=== PATIENT | female | born 1985 | race Caucasian/White ===

== ENCOUNTER 2019-11-07 12:25 | Day surgery (SDC) | payer OTHER, SELFPAY ==
[2019-11-07] VITALS (10 sets, daily range): BP systolic 85–106; BP diastolic 45–59; PULSE 63–85; RESP 14–21; TEMP 36.2–36.5; O2SAT 92–96
[2019-11-07] MEDS: Lactated Ringers 1,000 ML 80 ML IV ×2 (12:58→15:24)
--- NOTE | 2019-11-07 13:04 | W.PM.DSUDISC ---
Discharge Plan Disposition Patient Disposition: HOME Condition: Good Discharge Details Reason For Visit: Acute cholecystitis Attending Provider: Patricia Ford Primary Care Provider: Juan Ramon Rothman Home Meds and New Rx's Prescriptions: New hydrocodone-acetaminophen 5-325 mg Tablet 1 tab PO Q4H PRN (Reason: Pain) Qty: 12 RF: 0 Continued diphenhydramine HCl [Benadryl] 25 mg capsule 25 mg PO Q6H PRNRF: 0 Vicks DayQuil Cold-Flu Relief 5-10-325 mg/15 mL liquid PO RF: 0 estradiol 1 mg tablet 1 mg PO DAILY RF: 0 Discharge Instructions Additional Instructions: The top bandage can be removed tomorrow. The steri strips will usually stick for about a week. When the edges start to curl up, they can be removed. It is okay to shower tomorrow, the water can run over the steri strips Do not swim or soak in a tub for two weeks Call for any concerns including fever, increased pain, vomiting, incision redness or drainage. Do not lift more than 15 pounds for two weeks. Walking and stairs are fine. Do not drive if on narcotic pain meds or if limited by pain. May use Tylenol alternating with ibuprofen for pain control. Ice is also an option. The maximum dose for Tylenol is 4000 mg/day. May use ibuprofen 800 mg every 8 hours as needed. If concerned about constipation, you may use a stool softener or milk of magnesia. Referrals: Patricia Ford MD [ [facility] STAFF PHYSICIAN] - (Return for a postop check in 10-14 days) Activity:: Do not lift more than 15 pounds for two weeks Remove Dressings/Wound Care:: 24 hours Shower/Bathe:: 24 hours Diet:: Low fat for two weeks Discharge Orders Discharge Orders: Discharge Order (Routine); Ordered 11/07/19 Ordered By: Patricia Ford DS: Diagnosis Discharge Diagnosis (1) Acute cholecystitis: Status: Acute
[2019-11-07] MEDS: ceFAZolin 2 GM/50 ML BAG IVPB (13:36)
--- NOTE | 2019-11-07 14:30 | GB_PTH ---
PATIENT: Xiomara Kelley LOC: [facility] U#:[id number] AGE/SX: 34/F ROOM: RE11/07/[address]: Patricia Ford MD : 1985 BED: DIS: 11/07/2019 SPEC #: [id number] RECD: 11/07/19 17:24 STATUS: VAMSHI REQ #: [id number] GORDON: 11/07/19 14:[address]: Patricia Ford DEPT: Surgical Specimen RECD BY: Rita Bryan ENTERED: 11/07/19 17:24 SP TYPE: GB OTHR DR: Juan Ramon Rothman Tissues: 1 - GALLBLADDER Procedures: GROSS AND MICRO LEVEL 3 Comments: [id number]
[2019-11-07] MEDS: fentaNYL 100 MCG/2 ML VIAL IVP (15:43)
--- NOTE | 2019-11-08 10:18 | ROE_ITS ---
DATE OF PROCEDURE: November 07, 2019 PREOPERATIVE DIAGNOSIS: Biliary colic. POSTOPERATIVE DIAGNOSIS: Acute cholecystitis. PROCEDURE: Laparoscopic cholecystectomy. SURGEON: Patricia Ford M.D. FAST FOOD SUPERVISOR: Guille Roger ANESTHESIA: General. INDICATIONS: This is a 34-year-old woman who presents with two weeks of right upper quadrant pain th at radiates to her back. This has been keeping her up most nights. She had a gallbladder ultrasound that showed that the gallbladder was full of sludge. Her LFT's have been normal. PROCEDURE: She was placed supine on the operating table and under general anesthetic was prepped and draped sterilely. A 5 mm incision was made to the left of the umbilicus and the abdomen entered und er direct visualization with the 5 mm scope. A C02 pneumoperitoneum was begun and she was placed in reverse Trendelenburg position. The epigastric and two lateral ports were placed, after injecting lo austin anesthetic, under direct visualization. The gallbladder fundus was grasped and pulled up over th e liver. The infundibulum was retracted laterally. Hook cautery was used to dissect the peritoneum overlying the triangle of Calot. It was obvious there was some edema of the tissues, consistent with mild acute cholecystitis. The node of Calot was identified. The cystic artery was visualized going directly onto the gallbladder. This was clipped twice proximally and once distally and divided. Th e cystic duct was visualized going directly onto the gallbladder. This was non-dilated. It was palp ated and no stones were identified within it. I did obtain a critical view. The cystic duct was cli pped twice distally and once proximally and divided. There was an additional arterial branch posteri gretel that was clipped. The gallbladder was then dissected off the liver bed with hook cautery and re moved through the epigastric incision in an EndoCatch bag. Inspection of the operative site revealed no bleeding or bile leak. The ports were removed with no evidence of bleeding and the C02 released. The skin at all port sites was closed with a #4-0 Monocryl subcuticular stitch. She tolerated the procedure well and was stable to recovery. cc: Juan Ramon Rothman D.O.
== END 2019-11-07 17:03 | disposition home or self-care (01) ==
PROVIDERS: PCP Family Medicine; Visit Provider Surgery
PROC: 0FT44ZZ Resection of Gallbladder, Percutaneous Endoscopic Approach (ICD-10-PCS; CPT 47562; principal; 2019-11-07 13:00)
DX: R10.84 Generalized abdominal pain (principal); K81.1 Chronic cholecystitis; K82.8 Other specified diseases of gallbladder
CPT/HCPCS: 47562; 88304; J0690; J1100; J1885; J2405; J3010

== ENCOUNTER 2020-07-28 17:50 | Emergency (ER) | payer OTHER, SELFPAY ==
[2020-07-28 17:53] VITALS: BP 150/90; PULSE 82; RESP 16; TEMP 36.6; O2SAT 98
--- NOTE | 2020-07-28 18:04 | W.ED.GENAD ---
Discharge Plan Disposition Patient Disposition: HOME Condition: Stable Discharge Details Chief Complaint: AnimalBite Clinical Impression: Dog bite of right forearm Primary Care Provider: Juan Ramon Rothman ED Provider: Jose Francisco Yoder Home Meds and New Rx's Prescriptions: New amoxicillin-pot clavulanate [Augmentin] 875-125 mg tablet 1 tab PO BID Qty: 14 RF: 0 Continued diphenhydramine HCl [Benadryl] 25 mg capsule 25 mg PO Q6H PRNRF: 0 estradiol 1 mg tablet 1 mg PO DAILY RF: 0 Discharge Instructions Instructions: Animal Bite (ED) Additional Instructions: if the wounds have spreading redness or yellow/white discharge from the wound return to the emergency department contact occupational health tomorrow to make sure you have had a tetanus vaccine or booster within 5 years and if not have one done with them or return to the emergency department Medical Decision Making 35 yo female comes in after her brother's 2 year old great katelyn bit her right arm when she had it outstretched. Has 1 2cm abrasion and 2 puncture wounds about 0.5mm in diameter on lateral proximal forearm, no bony tenderness, full rom of the elbow wrist and hand with normal pulses. Pt states utd on tetanus when she went to [facility] a year ago, we do not have access to this so she will contact them tomorrow and make sure she's had it within 5 years and if not either get a booster from them or return here. She states dog is utd on rabies. Do not feel any imaging indicated, will start on augmentin and d/c with return precautions Differential Diagnosis Differential Diagnosis: dog bite puncture wounds HPI General Mode of arrival: ambulatory. Date/Time Provider Initiated Documentation: 07/28/20 17:59. Limitations to Documentation: no limitations. Information obtained by: patient. History of Present Illness 35 year old F presents to the emergency department with the chief complaint of dog bite, described as moderate, and it has been constant. No relieving factors improve symptom(s), No exacerbating factors reported . Related Data Home Medications Medication Instructions Recorded Confirmed diphenhydramine HCl 25 mg capsule 25 mg PO Q6H PRN 11/07/19 07/28/20 estradiol 1 mg tablet 1 mg PO DAILY 11/07/19 07/28/20 amoxicillin-pot clavulanate 1 tab PO BID #14 tab 07/28/20 [Augmentin] Previous Rx's Medication Instructions Recorded amoxicillin-pot clavulanate 1 tab PO BID #14 tab 07/28/20 [Augmentin] Allergies Allergy/AdvReac Type Severity Reaction Status Date / Time No Known Allergies Allergy Verified 11/07/19 12:43 General Stated Complaint: AnimalBite RACHEL: 4 Review of Systems All systems reviewed & are unremarkable except as noted in HPI and below Constitutional Constitutional: Denies chills, Denies fever(s) and Denies weakness Cardiovascular Cardiovascular: Denies chest pain and Denies dyspnea Respiratory Respiratory: Denies cough and Denies dyspnea Gastrointestinal Gastrointestinal: Denies abdominal pain, Denies nausea and Denies vomiting Musculoskeletal Musculoskeletal: Denies joint swelling Integumentary/Breasts Skin/Breast: Denies rash Neurologic Neurologic: Denies weakness Psychiatric Psychiatric: Denies depression [facility] Medical History (Updated 07/28/20 @ 18:08 by Jose Francisco Yoder MD) Abdominal pain (Acute) Colitis (Acute) Constipation (Acute) Diarrhea (Acute) Endometriosis (Chronic) Family history of Crohn's disease (Acute) Surgical History (Updated 11/07/19 @ 14:44 by Patricia Ford MD) H/O laparoscopy (Chronic) H/O: hysterectomy (Chronic) S/P laparoscopic cholecystectomy (Acute) [place] teeth removed (Acute) Social History (Updated 11/07/19 @ 12:25 by Patricia Ford MD) Smoking/Tobacco Use Status: Never Alcohol Intake: current Alcohol Intake frequency: a few times a week Substance use type: does not use Do you feel safe at home: Yes Do you feel safe in your relationship?: Yes Exam Const General: no acute distress Orientation: alert HENAL Head: normal to inspection Ears: external ears normal General nose exam: external nose normal Mouth: moist mucous membranes Eyes General: appearance normal, both eyes and all related structures Neck Neck: normal visual inspection Resp Effort & Inspection: normal respiratory effort and able to speak in complete sentences Cardio Rate: regular rate Skin General skin exam: no rashes or lesions noted Neuro General: patient alert and patient oriented x3 Extrem General: full ROM and capillary refill normal Psych Mental Status: mental status grossly normal Course Vital Signs Vital signs: Vital Signs Temperature 36.6 C 07/28/20 17:53 Pulse 82 07/28/20 17:53 Respiratory Rate 16 07/28/20 17:53 Blood Pressure 150/90 H 07/28/20 17:53 Pulse Oximetry 98 07/28/20 17:53 Temperature 36.6 C 07/28/20 17:53 Temperature Source Skin 07/28/20 17:53 Pulse 82 07/28/20 17:53 Respiratory Rate 16 07/28/20 17:53 Respiratory Effort Non-Labored 07/28/20 17:57 Blood Pressure 150/90 H 07/28/20 17:53 Blood Pressure Position Sitting 07/28/20 17:53 Pulse Oximetry 98 07/28/20 17:53 Pain Level 5 07/28/20 17:53
[2020-07-28] MEDS: Amoxicillin 875/Clav. 125 TAB PO (18:12)
--- NOTE | 2020-07-28 18:22 | NUR.NOTE ---
Animal bite form faxed to [facility] Health Officer Guevara Najera, .Nursing Note:
== END 2020-07-28 18:24 | disposition home or self-care (01) ==
LOC: ER 18:17
PROVIDERS: Emergency Provider Emergency Medicine; PCP Family Medicine
DX: S51.851A Open bite of right forearm, initial encounter (principal); W54.0XXA Bitten by dog, initial encounter
CPT/HCPCS: 99283

== ENCOUNTER 2020-10-02 01:11 | Outpatient (CLI) | payer OTHER, SELFPAY ==
[2020-10-02 07:43] LABS: Hemoglobin A1C 4.8 % (<5.7)
[2020-10-02 09:34] LABS: Calculated LDL 155 mg/dL (<100); Cholesterol 261 mg/dL (<200); HDL Cholesterol 74 mg/dL (40-60); Triglyceride 162 mg/dL (<150)
[2020-10-06 10:31] LABS: HIV-1/2 Ag & Ab Screen Negative (Negative)
[2020-10-20 15:10] LABS: Hepatitis C Ab w Rflx HCV PCR Negative (Negative)
== END 2020-10-02 01:31 ==
PROVIDERS: PCP Nurse Practitioner Family; Visit Provider Nurse Practitioner Family
DX: Z11.4 Encounter for screening for human immunodeficiency virus [HIV] (principal); Z13.220 Encounter for screening for lipoid disorders; Z83.3 Family history of diabetes mellitus
CPT/HCPCS: 36415; 80061; 86803; 87389; 83036

== ENCOUNTER 2023-02-01 16:12 | Outpatient (CLI) | payer OTHER, SELFPAY ==
--- NOTE | 2023-02-01 14:30 | DI.RAD_ITS ---
Exam(s) XR CHEST 2V PA LATERAL EXAM: XR CHEST 2V PA LATERAL CLINICAL HISTORY: fever, recent cold ?PNA, R50.9 TECHNIQUE: 2D digital imaging was performed of the chest. Two images were obtained. PA and lateral views were obtained. COMPARISON: No exams were available for comparison FINDINGS: MEDIASTINUM: Normal. HEART: Normal. PULMONARY VASCULATURE: Normal. LUNGS: Clear. PLEURAL SPACE: No pleural effusion or pneumothorax. BONE:Within normal limits for the patient's age. OTHER FINDINGS:There are surgical clips seen in the right upper quadrant of the abdomen. The patient is status post cholecystectomy. IMPRESSION: No acute pulmonary findings. DATA REPOSITORY: RADIATION DOSE DELIVERED:
== END 2023-02-01 16:32 ==
LOC: DI 16:13
PROVIDERS: PCP Nurse Practitioner Family; Visit Provider Nurse Practitioner Family
DX: R50.9 Fever, unspecified (principal); R05.8 Other specified cough
CPT/HCPCS: 71046

== ENCOUNTER 2023-03-17 01:34 | Outpatient (CLI) | payer OTHER, SELFPAY ==
[2023-03-17 08:58] LABS: Abs Immature Grans 0.01 10^3/uL (0.0-0.06); Absolute Basophil Count 0.05 10^3/uL (0.0-0.2); Absolute Eosinophil Count 0.08 10^3/uL (0.0-0.7); Absolute Lymphocyte Count 2.19 10^3/uL (1.2-3.4); Absolute Monocyte Count 0.53 10^3/uL (0.1-0.8); Absolute Neutrophil Count 2.29 10^3/uL (1.2-6.7); Eosinophils % 1.6; HCT 40.1 % (36.0-46.0); HGB 13.6 g/dL (11.2-15.7); Immature Grans % 0.2; Lymphocytes % 42.5; MCHC 33.9 % (32.0-36.0); MCV 97 fL (80-95); MPV 12.6 fL (8.0-11.0); Monocytes % 10.3; Neutrophils % 44.4; Platelet Count 182 10^3/uL (130-400); RBC 4.12 10^6/uL (3.93-5.22); RDW 12.5 % (11.7-14.6); RDW-SD 44.7 fL; WBC 5.15 10^3/uL (4.4-10.8)
[2023-03-17 10:11] LABS: ALT 26 U/L (14-59); AST 15 U/L (15-37); Albumin 3.6 g/dL (3.4-5.0); Alkaline Phosphatase 65 U/L (46-116); Anion Gap 8.3 mmol/L (3-11); BUN 20 mg/dL (7-18); Bilirubin, Total 0.4 mg/dL (0.2-1.0); CO2 26.7 mmol/L (21.0-32.0); CREATININE 0.8 mg/dL (0.55-1.02); Calcium 8.8 mg/dL (8.5-10.1); Calculated LDL 155 mg/dL (<100); Chloride 105 mmol/L (98-107); Cholesterol 258 mg/dL (<200); Estimated GFR 96.66 (mL/min/1.73m2); Glucose 110 mg/dL (74-106); HDL Cholesterol 87 mg/dL (40-60); Potassium 4.3 mmol/L (3.5-5.1); Sodium 140 mmol/L (136-145); TSH (W/Ref FT4) 2.16 uIU/mL (0.36-3.74); Total Protein 7.5 g/dL (6.4-8.2); Triglyceride 82 mg/dL (<150)
== END 2023-03-17 01:35 | disposition home or self-care (01) ==
LOC: LBO 01:35
PROVIDERS: PCP Nurse Practitioner Family; Referring Provider Nurse Practitioner Family; Visit Provider Nurse Practitioner Family
DX: R23.2 Flushing (principal); Z13.1 Encounter for screening for diabetes mellitus; E78.5 Hyperlipidemia, unspecified
CPT/HCPCS: 36415; 80053; 80061; 84443; 85025

== ENCOUNTER 2023-03-23 13:02 | Outpatient (CLI) | payer OTHER, SELFPAY ==
[2023-03-23 12:57] LABS: Folate 18.7 ng/mL (8.6-20.0); Vitamin B12 443 pg/mL (193-986)
== END 2023-03-23 13:03 | disposition home or self-care (01) ==
LOC: LBO 13:02
PROVIDERS: PCP Nurse Practitioner Family; Visit Provider Nurse Practitioner Family
DX: D75.89 Other specified diseases of blood and blood-forming organs (principal); R73.01 Impaired fasting glucose; E78.5 Hyperlipidemia, unspecified
CPT/HCPCS: 36415; 82607; 82746; 83036

== ENCOUNTER 2024-02-21 10:58 | Emergency (ER) | payer OTHER, SELFPAY ==
[2024-02-21 11:15] VITALS: BP 139/99; PULSE 76; RESP 16; TEMP 36.9; O2SAT 97
--- NOTE | 2024-02-21 11:45 | DI.CT_ITS ---
Exam(s) CT ABDOMEN PELVIS W EXAM: CT ABDOMEN PELVIS W CLINICAL HISTORY: lower abd pain, tender lower mid TECHNIQUE: Imaging Protocol: Axial computed tomography images with coronal and sagittal reformatted images were created and reviewed. CONTRAST MATERIAL: Intravenous: Omnipaque 350 Contrast volume:100 mL Oral: No COMPARISON: CT CT ABDOMEN PELVIS W from 05/28/2021 FINDINGS: ABDOMEN: Lung Bases: Normal where visualized. Liver: Normal density. No measurable mass. Portal, Superior Mesenteric, and Splenic Veins: Unremarkable. Gallbladder and Biliary Tract: Status post cholecystectomy. No significant biliary ductal dilatation . Pancreas: Normal density, no abnormal calcifications or inflammatory process. Spleen: Normal. Adrenals: No masses seen. Kidneys: Normal size, contour and axis. No radiodense stones or obstructive uropathy. No masses seen. Abdominal Aorta: Abdominal portion non-dilated. Bowel: The distal colon is collapsed limiting evaluation. There is a normal appendix. There is mode rate bowel wall thickening seen in the distal ileum no pneumatosis is seen. The remainder of the bow el is unremarkable. The stomach is incompletely distended limiting evaluation. Note is made of a di verticulum in the 3rd portion of the duodenum. Peritoneal Cavity: There is a small amount of pelvic ascites. No focal fluid collection is seen to s uggest an abscess. No free air. Lymph Nodes: Within normal limits. Bones: Within normal limits for the patient's age. Soft Tissues: Unremarkable. PELVIS: Bladder: The urinary bladder is incompletely distended. There is thickening of the wall of the urina ry bladder Reproductive Organs: Status post hysterectomy. Lymph Nodes: Within normal limits. Bones: Within normal limits for the patient's age. IMPRESSION: 1. Moderate bowel wall thickening involving the distal ileum. Findings are concerning for inflammato ry bowel disease. Infectious ileitis should also be considered. 2. Small amount of pelvic ascites. No pneumatosis or pneumoperitoneum. No focal fluid collection to suggest an abscess. 3. Normal appendix. 4. Mild thickening of the wall of the urinary bladder. This may be due to incomplete tension. Cysti tis cannot be excluded. Please correlate clinically. 5. Status post cholecystectomy and hysterectomy. RADIATION DOSE DELIVERED: Total DLP DATA REPOSITORY: All CT scans at this facility are submitted to the National Radiology Data Registry (NRDR) Dose Index Registry (DIR) with the [employer] (ACR). RADIATION OPTIMIZATION: All CT scans at this facility use at least one of these dose optimization te chniques: automated exposure control; mA and/or kV adjustment per patient size (includes targeted exa ms where dose is matched to clinical indication); or iterative reconstruction.
[2024-02-21 12:09] LABS: Abs Immature Grans 0.02 10^3/uL (0.0-0.06); Absolute Basophil Count 0.04 10^3/uL (0.0-0.2); Absolute Eosinophil Count 0.06 10^3/uL (0.0-0.7); Absolute Lymphocyte Count 2.17 10^3/uL (1.2-3.4); Absolute Monocyte Count 0.61 10^3/uL (0.1-0.8); Absolute Neutrophil Count 5.76 10^3/uL (1.2-6.7); Basophils % 0.5; Eosinophils % 0.7; HCT 45.4 % (36.0-46.0); HGB 15.5 g/dL (11.2-15.7); Immature Grans % 0.2; Lymphocytes % 25.1; MCH 33.5 pg (27.0-33.0); MCHC 34.1 % (32.0-36.0); MCV 98 fL (80-95); MPV 12.5 fL (8.0-11.0); Neutrophils % 66.5; Platelet Count 204 10^3/uL (130-400); RBC 4.62 10^6/uL (3.93-5.22); RDW 12.8 % (11.7-14.6); RDW-SD 46.3 fL; WBC 8.66 10^3/uL (4.4-10.8)
[2024-02-21 12:11] LABS: Bilirubin Small (Negative); Blood Negative (Negative); Clarity Sl Cloudy (Clear); Glucose Negative (Negative); Ketones Trace mg/dL (Negative); Leukocyte Esterase Negative (Negative); Nitrite Negative (Negative); Specific Gravity 1.025 (1.005-1.025); Urobilinogen 0.2 mg/dL (Up to 0.2); pH 5.5 (5-8)
--- NOTE | 2024-02-21 12:14 | W.ED.GENAD ---
Discharge Plan Disposition Patient Disposition: Home Condition: Stable Discharge Details Clinical Impression: Abdominal pain, Bowel wall thickening Primary Care Provider: Patricia Butts ED Provider: Ramirez Madison Home Meds and New Rx's Prescriptions: Continued estradiol 1 mg tablet 1 mg PO DAILY Discharge Instructions Instructions: Abdominal Pain (ED) Additional Instructions: Drop stool sample testing of in lab. This testing will be pending at time of discharge from the emergency department. Please be sure to discuss results with your doctor. Please follow-up with your assurance senior manager insurance and gastroenterology. Call today to arrange follow-up. Please allow for bowel rest today and tomorrow. Maintain a clear liquid diet today. You may advance your diet tomorrow afternoon to bland soft foods like rice. Advance slowly thereafter to full diet as tolerated. Please contact your primary care physician to arrange follow-up. Return to the ER immediately for any worsening or new concerning symptoms. Stand Alone Forms: Work Release Referrals: Patricia Butts DO [Primary Care Provider] - Discharge Data Discharge Date/Time-TO BE ENTERED AT DEPARTURE: 02/21/24 13:42 HPI General Mode of arrival: ambulatory. Date/Time Provider Initiated Documentation: 02/21/24 11:30. Limitations to Documentation: no limitations. Information obtained by: patient. HPI Narrative: 38yo female presents today with chief complaint of abdominal pain. Patient notes that pain started in her lower abdomen yesterday animal warden. She had associated nausea and loose stool. Loose stool has resolved and she since had a formed bowel movement. She continues to have severe lower abdominal pain that seems to come in waves. Pain is described as menstrual like pain. She denies associated vaginal bleeding. Of note patient is 10 years status post total hysterectomy. She has a history of endometriosis. No associated urinary symptoms. Related Data Home Medications Medication Instructions Recorded Confirmed estradiol 1 mg tablet 1 mg PO DAILY 11/07/19 02/21/24 Allergies Allergy/AdvReac Type Severity Reaction Status Date / Time weswi AdvReac Intermediate tongue Uncoded 02/21/24 11:22 sores/swelling General Stated Complaint: Abd Prob RACHEL: 3 Review of Systems Constitutional Constitutional: Denies fever(s) Gastrointestinal Gastrointestinal: Reports as per HPI Exam Const General: cooperative and no acute distress HENMT Mouth: moist mucous membranes Eyes Conjunctivae: normal conjunctivae Sclera: normal sclerae Neck Neck: trachea midline and supple Resp Auscultation: clear to auscultation bilaterally, no rales, no rhonchi and no wheezes Cardio Rate: regular rate and not tachycardic Rhythm: regular rhythm GI Palpation: soft, not firm, no guarding, no masses, not rigid and tender in the LLQ, in the RLQ and suprapubicly Skin General skin exam: no rashes or lesions noted Neuro General: patient alert, patient awake, patient oriented x3 and tone normal Extrem General: no edema Psych Appearance: grossly normal Mental Status: mental status grossly normal Speech and Movement: speech and movement normal Course Vital Signs Vital signs: Vital Signs Temperature 36.9 C 02/21/24 11:15 Pulse 76 02/21/24 11:15 Respiratory Rate 16 02/21/24 11:15 Blood Pressure 139/99 H 02/21/24 11:15 Pulse Oximetry 97 02/21/24 11:15 Temperature 36.9 C 02/21/24 11:15 Temperature Source Tympanic 02/21/24 11:15 Pulse 76 02/21/24 11:15 Respiratory Rate 16 02/21/24 11:15 Respiratory Effort Normal, Non-Labored 02/21/24 11:32 Blood Pressure 139/99 H 02/21/24 11:15 Blood Pressure Position Sitting 02/21/24 11:15 Pulse Oximetry 97 02/21/24 11:15 Oxygen Delivery Method Room Air 02/21/24 11:15 Oxygen Flow Rate 0 02/21/24 11:15 Pain Level 5 02/21/24 11:32 Comment Was 8/10 pain prior to taking ibuprofen 02/21/24 11:15 Lab/Test Results Lab/Test Results: Laboratory Tests Range/Units 02/21/24 11:42 WBC (4.4-10.8) 10^3/uL 8.66 RBC (3.93-5.22) 10^6/uL 4.62 Hgb (11.2-15.7) g/dL 15.5 Hct (36.0-46.0) % 45.4 MCV (80-95) fL 98 H MCH (27.0-33.0) pg 33.5 H MCHC (32.0-36.0) % 34.1 RDW (11.7-14.6) % 12.8 Plt Count (130-400) 10^3/uL 204 MPV (8.0-11.0) fL 12.5 H Immature Gran % 0.2 Neutrophils % 66.5 Lymphocytes % 25.1 Monocytes % 7.0 Eosinophils % 0.7 Basophils % 0.5 Nucleated RBC % (0.0-0.3) % 0.0 Absolute Neutrophils (1.2-6.7) 10^3/uL 5.76 Absolute Lymphocytes (1.2-3.4) 10^3/uL 2.17 Absolute Monocytes (0.1-0.8) 10^3/uL 0.61 Absolute Eosinophils (0.0-0.7) 10^3/uL 0.06 Absolute Basophils (0.0-0.2) 10^3/uL 0.04 Medical Decision Making 1218??38-year-old female with history of IBS, endometriosis, 10-year status post total hysterectomy, here with lower abdominal pain that started yesterday with associated nausea and loose stool. Patient describes the pain coming in waves. She is tender in her lower abdomen more centrally. She has no urinary symptoms. Consider acute surgical pathology including appendicitis. Consider endometriosis. Plan to obtain CT of the abdomen pelvis. --Labs reviewed and nondiagnostic. 1315 --CT of the abdomen pelvis was interpreted by radiology: 1. Moderate bowel wall thickening involving the distal ileum. Findings are concerning for inflammatory bowel disease. Infectious ileitis should also be considered. 2. Small amount of pelvic ascites. No pneumatosis or pneumoperitoneum. No focal fluid collection to suggest an abscess. 3. Normal appendix. 4. Mild thickening of the wall of the urinary bladder. This may be due to incomplete tension. Cystitis cannot be excluded. Please correlate clinically. 5. Status post cholecystectomy and hysterectomy. Plan to have the patient follow-up with her assurance senior manager insurance as well as gastroenterology. Lab Data Lab results reviewed: Yes I reviewed the patient's lab results. Labs: Laboratory Tests Range/Units 02/21/24 11:42 WBC (4.4-10.8) 10^3/uL 8.66 RBC (3.93-5.22) 10^6/uL 4.62 Hgb (11.2-15.7) g/dL 15.5 Hct (36.0-46.0) % 45.4 MCV (80-95) fL 98 H MCH (27.0-33.0) pg 33.5 H MCHC (32.0-36.0) % 34.1 RDW (11.7-14.6) % 12.8 Plt Count (130-400) 10^3/uL 204 MPV (8.0-11.0) fL 12.5 H Immature Gran % 0.2 Neutrophils % 66.5 Lymphocytes % 25.1 Monocytes % 7.0 Eosinophils % 0.7 Basophils % 0.5 Nucleated RBC % (0.0-0.3) % 0.0 Absolute Neutrophils (1.2-6.7) 10^3/uL 5.76 Absolute Lymphocytes (1.2-3.4) 10^3/uL 2.17 Absolute Monocytes (0.1-0.8) 10^3/uL 0.61 Absolute Eosinophils (0.0-0.7) 10^3/uL 0.06 Absolute Basophils (0.0-0.2) 10^3/uL 0.04 Sodium (136-145) mmol/L 142 Potassium (3.5-5.1) mmol/L 3.8 Chloride (98-107) mmol/L 104 Carbon Dioxide (21.0-32.0) mmol/L 25.7 Anion Gap (3-11) mmol/L 12.3 H BUN (7-18) mg/dL 16 Creatinine (0.55-1.02) mg/dL 0.8 Est GFR (CKD-EPI 2020) (mL/min/1.73m2) 96.06 Glucose (74-106) mg/dL 101 Calcium (8.5-10.1) mg/dL 9.3 Magnesium (1.8-2.4) mg/dL 2.0 Total Bilirubin (0.2-1.0) mg/dL 0.5 AST (15-37) U/L 16 ALT (14-59) U/L 24 Alkaline Phosphatase (46-116) U/L 65 Total Protein (6.4-8.2) g/dL 8.2 Albumin (3.4-5.0) g/dL 4.0 Lipase (16-77) U/L 20 Urine Color (Yellow) Yellow Urine Clarity (Clear) Sl Cloudy Urine pH (5-8) 5.5 Ur Specific [place] (1.005-1.025) 1.025 Urine Protein (Neg-Trace) mg/dL Trace Urine Ketones (Negative) mg/dL Trace H Urine Blood (Negative) Negative Urine Nitrite (Negative) Negative Urine Bilirubin (Negative) Small H Urine Urobilinogen (Up to 0.2) mg/dL 0.2 Ur Leukocyte Esterase (Negative) Negative Urine Glucose (Negative) mg/dL Negative Quality:SDOH Health Related Social Needs: No Data to Display PFSH All Active Problems (Updated 02/21/24 @ 13:22 by Ramirez Madison MD) Bowel wall thickening (Acute) Abdominal pain (Acute) Seasonal allergies (Acute) Oral allergy syndrome (Acute) Allergic reaction to food (Acute) New, post kiwi-water, mehran, banana .. No Hx latex allergy IFG (impaired fasting glucose) (Acute) Hyperlipidemia, unspecified (Chronic) IBS (irritable bowel syndrome) (Chronic) Vasomotor flushing (Acute) Medical History Macrocytosis without anemia Asymptomatic postprocedural ovarian failure Ileitis Related to past episodes of endometriosis Dyspareunia Endometriosis of pelvic peritoneum S/p hysterectomy 2013 Gastritis Acute cholecystitis S/p oumar Colitis Surgical History S/P laparoscopic cholecystectomy [place] teeth removed H/O laparoscopy H/O: hysterectomy (~01/2014) 2/2 endometriosis Family History Father Stomach ulcer Maternal Uncle No problems noted. Paternal Uncle Heart disease Paternal Grandmother , 2/2 metastatic breast cancer Breast cancer Stomach cancer Glaucoma Mother Diabetes Brother Diabetes Hypertension Maternal Grandfather Diabetes Heart disease Glaucoma Paternal Aunt Stomach ulcer Paternal Cousin Crohn's disease Other Substance abuse Social History Smoking/Tobacco Use Status: Never Smoking risk assessment performed?: Yes Alcohol Intake: current Alcohol Intake frequency: a few times a week Alcohol type: beer, wine and hard liquor Drug use: Rarely Substance use type: marijuana Adopted: No Caregiver/Support person: No Household members: spouse Communication Needs: None Do you need help understanding health information?: Never 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[employer]) Pets and animals: Yes Sexually active: Yes Do you think of yourself as: straight/heterosexual Current gender identity: female What type of physical activity do you participate in: walking Duration: 60-90 minutes/day Frequency: 3-4 times per week Seatbelt use: always Helmet use: Yes Drive intox or ride w/intox racing driver: No Water heater temp set <120 deg: Yes Working smoke detector in home: Yes Fire extinguisher in home: Yes Carbon monox detector in home: Yes Firearms in home: Yes Firearms unloaded and locked: Yes Do you feel safe at home: Yes Do you feel safe in your relationship?: Yes Female Reproductive History Menstrual Menopause type: surgical
[2024-02-21] MEDS: Normal Saline - Diluent 50 ML VIAL IJ (12:16)
[2024-02-21] MEDS: Omnipaque 350 MG/ML 500 ML BTL-Imaging package 100 ML IJ (12:17)
[2024-02-21 12:28] LABS: ALT 24 U/L (14-59); AST 16 U/L (15-37); Alkaline Phosphatase 65 U/L (46-116); Anion Gap 12.3 mmol/L (3-11); BUN 16 mg/dL (7-18); Bilirubin, Total 0.5 mg/dL (0.2-1.0); CO2 25.7 mmol/L (21.0-32.0); CREATININE 0.8 mg/dL (0.55-1.02); Calcium 9.3 mg/dL (8.5-10.1); Chloride 104 mmol/L (98-107); Estimated GFR 96.06 (mL/min/1.73m2); Glucose 101 mg/dL (74-106); Lipase 20 U/L (16-77); Potassium 3.8 mmol/L (3.5-5.1); Sodium 142 mmol/L (136-145); Total Protein 8.2 g/dL (6.4-8.2)
[2024-02-21 13:42] VITALS: BP 131/70; PULSE 71; RESP 16; O2SAT 97
== END 2024-02-21 13:42 | disposition home or self-care (01) ==
PROVIDERS: Emergency Provider Student in an Organized Health Care Education/Training Program; PCP Student in an Organized Health Care Education/Training Program
DX: R10.30 Lower abdominal pain, unspecified (principal); R19.7 Diarrhea, unspecified; Z90.49 Acquired absence of other specified parts of digestive tract; Z90.710 Acquired absence of both cervix and uterus
CPT/HCPCS: 36415; 80053; 83690; 99285; 74177; 81003; 83735; 85025; 99284

== ENCOUNTER 2024-02-22 08:08 | Outpatient (REF) | payer OTHER, SELFPAY ==
[2024-02-23 22:12] LABS: Campylobacter PCR Negative (Negative); Salmonella PCR Negative (Negative); Shiga Toxin PCR Negative (Negative); Shigella/Enteroinvasive Ecoli Negative (Negative)
== END 2024-02-22 08:09 | disposition home or self-care (01) ==
LOC: LBN 08:08
PROVIDERS: PCP Student in an Organized Health Care Education/Training Program; Visit Provider Student in an Organized Health Care Education/Training Program
DX: K50.00 Crohn's disease of small intestine without complications (principal)
CPT/HCPCS: 87505; 83630; 87177

== ENCOUNTER 2024-05-17 01:34 | Outpatient (CLI) | payer OTHER, SELFPAY ==
[2024-05-17 09:56] LABS: Anion Gap 9.2 mmol/L (3-11); BUN 16 mg/dL (7-18); CO2 25.8 mmol/L (21.0-32.0); CREATININE 0.9 mg/dL (0.55-1.02); Calcium 9.3 mg/dL (8.5-10.1); Chloride 105 mmol/L (98-107); Estimated GFR 82.88 (mL/min/1.73m2); Glucose 98 mg/dL (74-106); Magnesium 1.7 mg/dL (1.8-2.4); Potassium 4.4 mmol/L (3.5-5.1); Sodium 140 mmol/L (136-145); TSH (W/Ref FT4) 3.44 uIU/mL (0.36-3.74)
[2024-05-17 10:01] LABS: C-Reactive Protein < 0.50 mg/dL (<or=0.5)
== END 2024-05-17 01:35 | disposition home or self-care (01) ==
LOC: LBO 01:34
PROVIDERS: PCP Student in an Organized Health Care Education/Training Program; Referring Provider Student in an Organized Health Care Education/Training Program; Visit Provider Student in an Organized Health Care Education/Training Program
DX: K52.9 Noninfective gastroenteritis and colitis, unspecified (principal); K58.2 Mixed irritable bowel syndrome; K63.9 Disease of intestine, unspecified; R10.9 Unspecified abdominal pain; R19.7 Diarrhea, unspecified; R63.0 Anorexia; R10.84 Generalized abdominal pain; Z92.89 Personal history of other medical treatment; T78.1XXA Other adverse food reactions, not elsewhere classified, initial encounter; K29.70 Gastritis, unspecified, without bleeding; R23.2 Flushing; R79.89 Other specified abnormal findings of blood chemistry; N80.30 Endometriosis of pelvic peritoneum, unspecified
CPT/HCPCS: 36415; 80048; 83735; 84443; 86140

== ENCOUNTER 2024-09-25 01:59 | Outpatient (CLI) | payer OTHER, SELFPAY ==
--- NOTE | 2024-09-25 | DI.MAMMO_ITS ---
Exam(s) MAMMO SCREENING EXAM: MAMMO SCREENING CLINICAL HISTORY: Z12.31 Screening TECHNIQUE: Bilateral full field digital CC and MLO mammographic images were obtained with 3D tomosyn thesis and utilizing computer aided detection (CAD). COMPARISON: Baseline examination. FINDINGS: Masses/Architectural Distortion: None seen. Microcalcifications: No suspicious pleomorphic-type are seen. Benign type calcifications are seen in both breasts. Skin Thickening/Nipple Retraction: None. IMPRESSION: 1. No specific features of malignancy are noted. 2. Unless there is more urgent need, screening mammography is recommended, as per [employer] guidelines. BI-RADS Category 2 - Benign Findings Breast Density - Category C - Heterogeneously dense Breast density category C or D implies that the patient has dense breast tissue. Dense breast tissue is very common and is not abnormal but dense breast tissue can make it harder to find cancer on a ma mmogram. Also, dense breast tissue may increase their breast cancer risk. This information about the result of the mammogram report was provided to the patient to raise their awareness. Use this report when you speak with the patient about their risks for breast cancer, which includes their family hist ory. At that time, you may recommend for more screening tests (Ultrasound or MRI) as they might be us eful based on their risk. A negative radiographic report should not delay biopsy if a dominant or clinically suspicious mass is present. Up to ten percent of cancers are not identified on mammography. A negative report may reinforce clinical impression. Adenosis and dense breasts may obscure an underlying neoplasm. False positive reports average 6 to 10%. Patient will receive a letter notifying them of these results.
== END 2024-09-25 02:19 ==
LOC: DI 01:59
PROVIDERS: PCP Student in an Organized Health Care Education/Training Program; Visit Provider Obstetrics & Gynecology
DX: Z12.31 Encounter for screening mammogram for malignant neoplasm of breast (principal); R92.333 Mammographic heterogeneous density, bilateral breasts; R92.1 Mammographic calcification found on diagnostic imaging of breast
CPT/HCPCS: 77063; 77067

== ENCOUNTER 2025-08-27 03:34 | Outpatient (CLI) | payer OTHER, SELFPAY ==
[2025-08-27 09:33] LABS: Hemoglobin A1C 4.7 % (<5.7)
[2025-08-27 10:14] LABS: Calculated LDL 125 mg/dL (<100); Cholesterol 231 mg/dL (<200); HDL Cholesterol 88 mg/dL (>or=50); Magnesium 1.9 mg/dL (1.8-2.4); Triglyceride 93 mg/dL (<150)
== END 2025-08-27 03:35 | disposition home or self-care (01) ==
LOC: LBO 03:35
PROVIDERS: PCP Nurse Practitioner Family; Referring Provider Nurse Practitioner Family; Visit Provider Nurse Practitioner Family
DX: Z00.00 Encounter for general adult medical examination without abnormal findings (principal); R73.01 Impaired fasting glucose; R79.0 Abnormal level of blood mineral
CPT/HCPCS: 36415; 80061; 83036; 83735

== ENCOUNTER → 2025-10-13 02:05 | Outpatient (CLI) | payer OTHER, SELFPAY ==
--- NOTE | 2025-10-13 08:27 | DI.MAMMO_ITS ---
Exam(s) MAMMO SCREENING EXAM: MAMMO SCREENING CLINICAL HISTORY: Z12.31 Screening TECHNIQUE: Bilateral full field digital CC and MLO mammographic images were obtained with 3D tomosynthesis and utilizing computer aided detection (CAD). COMPARISON: Comparison is made with prior examinations. FINDINGS: Masses/Architectural Distortion: No suspicious masses or areas of architectural distortion are present. Microcalcifications: No suspicious pleomorphic-type are seen. There are stable benign type calcifications in both breasts. Skin Thickening/Nipple Retraction: None. IMPRESSION: 1. No significant interval change with no specific features of malignancy noted. 2. Unless there is more urgent need, screening mammography is recommended, as per [employer] guidelines. BI-RADS Category 2 - Benign Findings Breast Density - Category C - The breast are heterogeneously dense, which may obscure small masses. Breast density Category C or D implies that the patient has dense breast tissue. Dense breast tissue can make it harder to find cancer on a mammogram. Dense breast tissue is also associated with an increased risk of breast cancer. This information about the result of the mammogram report was provided to the patient to raise their awareness. Use this report when you speak with the patient about their risks for breast cancer, which includes their family history. At that time, you may recommend additional screening tests (Ultrasound or MRI) as these tests may add significant information. A negative radiographic report should not delay biopsy if a dominant or clinically suspicious mass is present. Up to ten percent of cancers are not identified on mammography. A negative report may reinforce clinical impression. Adenosis and dense breasts may obscure an underlying neoplasm. False positive reports average 6 to 10%. Patient will receive a letter notifying them of these results.
== END ==
PROVIDERS: PCP Nurse Practitioner Family; Visit Provider Obstetrics & Gynecology
DX: Z12.31 Encounter for screening mammogram for malignant neoplasm of breast (principal)
CPT/HCPCS: 77063; 77067